=== PATIENT | female | born 1970 | race Caucasian/White ===

== ENCOUNTER 2018-03-14 08:37 | Day surgery (SDC) | payer OTHER ==
[2018-03-14] MEDS ORDERED: PROPOFOL 40 ML (10:41)
[2018-03-14] MEDS ORDERED: FENTAnyl 50 MCG/ML VIAL (10:41)
[2018-03-14] MEDS ORDERED: LIDOCAINE 100 MG SYRINGE (10:41)
== END 2018-03-14 14:51 | disposition home or self-care (01) ==
LOC: GIL 08:37
DX: R19.4 Change in bowel habit (principal); D12.3 Benign neoplasm of transverse colon; K29.60 Other gastritis without bleeding; K44.9 Diaphragmatic hernia without obstruction or gangrene; K21.9 Gastro-esophageal reflux disease without esophagitis; K64.8 Other hemorrhoids; I10 Essential (primary) hypertension; J45.909 Unspecified asthma, uncomplicated; F17.200 Nicotine dependence, unspecified, uncomplicated; Z79.82 Long term (current) use of aspirin
CPT/HCPCS: 43239; 88305; 88312

== ENCOUNTER 2018-05-21 20:30 | Emergency (ER) | payer OTHER ==
[2018-05-21] MEDS: traMADol 50 MG TAB PO (22:21)
[2018-05-21] MEDS: ACETAMINOPHEN 325 MG TAB PO (22:21)
== END 2018-05-21 23:15 | disposition home or self-care (01) ==
LOC: FTE 20:30
DX: S63.502A Unspecified sprain of left wrist, initial encounter (principal); S80.12XA Contusion of left lower leg, initial encounter; S70.02XA Contusion of left hip, initial encounter; J45.909 Unspecified asthma, uncomplicated; I10 Essential (primary) hypertension; F17.210 Nicotine dependence, cigarettes, uncomplicated; W18.39XA Other fall on same level, initial encounter; Y92.520 Airport as the place of occurrence of the external cause
CPT/HCPCS: 73110; 73110-LT; 99283-25

== ENCOUNTER 2018-12-27 21:02 | Emergency (ER) | payer SELFPAY, OTHER | END 2018-12-27 23:10 | disposition left against medical advice (07) | LOC: FTE 21:02 | DX: Z53.21 Procedure and treatment not carried out due to patient leaving prior to being seen by health care provider (principal) ==

== ENCOUNTER 2018-12-28 20:58 | Emergency (ER) | payer OTHER ==
[2018-12-28] MEDS: ONDANSETRON 4 MG INJ IV (23:15)
[2018-12-28] MEDS: morphine 4 MG/ML VIAL IV (23:23)
[2018-12-28 23:24] LABS: ADD MAN DIFF? NO
[2018-12-28 23:25] LABS: WHITE BLOOD COUNT 9.8 10^3/ul (4.8-10.8)
[2018-12-28 23:25] LABS: BASOPHIL # 0.1 10^3/ul (0.0-0.1); BASOPHILS % 0.5 % (0.0-2.0); EOSINOPHILS # 0.1 10^3/ul (0.0-0.5); EOSINOPHILS % 1.1 % (0.0-7.0); HEMATOCRIT 47.3 % (37.0-47.0); HEMOGLOBIN 15.6 g/dl (12.0-16.0); LYMPHOCYTES # 3.5 10^3/ul (0.8-2.9); LYMPHOCYTES % 35.3 % (15.0-51.0); MEAN CORPUSCULAR HEMOGLOBIN 30.1 pg (29.0-33.0); MEAN CORPUSCULAR VOLUME 91.1 fl (82.0-101.0); MEAN PLATELET VOLUME 12.9 fl (7.4-10.4); MONOCYTE # 0.7 10^3/ul (0.3-0.9); NEUTROPHIL # 5.5 10^3/ul (1.6-7.5); NEUTROPHILS % 55.9 % (39.0-77.0); PLATELET COUNT 224 10^3/UL (140-415); RED BLOOD COUNT 5.19 10^6/ul (4.20-5.40); RED CELL DISTRIBUTION WIDTH 13.9 % (11.5-14.5)
[2018-12-28 23:45] LABS: ALANINE AMINOTRANSFERASE 42 IU/L (13-69); ALBUMIN 4.4 g/dl (3.3-4.9); ALBUMIN/GLOBULIN RATIO 1.33; ALKALINE PHOSPHATASE 120 IU/L (42-121); ANION GAP 7 (5-13); ASPARTATE AMINO TRANSFERASE 37 IU/L (15-46); BILIRUBIN,INDIRECT 0.3 mg/dl (0-1.1); BILIRUBIN,TOTAL 0.3 mg/dl (0.2-1.3); BLOOD UREA NITROGEN 21 mg/dl (7-20); CALCIUM 9.9 mg/dl (8.4-10.2); CARBON DIOXIDE 30 mmol/L (21-31); CHLORIDE 105 mmol/L (97-110); CREATININE 1.07 mg/dl (0.44-1.00); Estimated GFR 54 mL/min (>60); GLUCOSE 114 mg/dl (70-220); LIPASE 87 U/L (23-300); POTASSIUM 4.4 mmol/L (3.5-5.1); SODIUM 142 mmol/L (135-144); TOTAL PROTEIN 7.7 g/dl (6.1-8.1)
[2018-12-29] MEDS: LORAZEPAM 2 MG INJ IV (01:06)
[2018-12-29] MEDS: ONDANSETRON 4 MG INJ IV (02:15)
[2018-12-29] MEDS: HYDROmorphONE 2 MG/ML SYG IV (02:15)
[2018-12-29 02:20] LABS: ADD UMIC NO; UR ASCORBIC ACID NEGATIVE (NEGATIVE); UR BILIRUBIN (Dip) NEGATIVE (NEGATIVE); UR BLOOD (Dip) NEGATIVE (NEGATIVE); UR CLARITY CLEAR (CLEAR); UR COLOR YELLOW (YELLOW); UR GLUCOSE (Dip) NEGATIVE (NEGATIVE); UR KETONES (Dip) TRACE mg/dL (NEGATIVE); UR LEUKOCYTE ESTERASE (Dip) NEGATIVE Leu/ul (NEGATIVE); UR NITRITE (Dip) NEGATIVE (NEGATIVE); UR SPECIFIC GRAVITY (Dip) 1.031 (1.003-1.030); UR TOTAL PROTEIN (Dip) NEGATIVE (NEGATIVE); UR UROBILINOGEN (Dip) 1+ mg/dL (NEGATIVE)
== END 2018-12-29 04:24 | disposition home or self-care (01) ==
LOC: E/R 20:58
DX: R10.13 Epigastric pain (principal); I10 Essential (primary) hypertension; J45.909 Unspecified asthma, uncomplicated; F17.210 Nicotine dependence, cigarettes, uncomplicated
CPT/HCPCS: 36415; 80053; 81003; 83690; 85025; 93005; 96374; 96375; 96376; 99284-25